=== PATIENT | female | born 1960 | race Caucasian/White ===

== ENCOUNTER 2016-09-08 19:55 | Emergency (ER) | payer OTHER ==
--- NOTE | ~2016-09-08 | EKG ---
PATIENT: LENIN LAINEZ UNIT #: [id number] Ventricular Rate: 78 BPM Atrial Rate: 78 BPM P-R Interval: 162 ms QRS Duration: 88 ms Q-T Interval: 392 ms QTC Calculation(Bezet): 446 ms P [place]: 54 degrees Calculated R [place]: 18 degrees Calculated T [place]: 63 degrees Diagnosis Line: Normal sinus rhythm Diagnosis Line: Anteroseptal infarct , age undetermined Diagnosis Line: Abnormal ECG Diagnosis Line: When compared with ECG of 24-FEB-2009 06:18, Diagnosis Line: Anteroseptal infarct is now Present Diagnosis Line: T wave inversion more evident in Anterior leads Diagnosis Line: Confirmed by ANN CONDE MD ([id number]) on Diagnosis Line: 09/09/2016 11:17:16 PM INTERPRETING MD: AMAYA HOGAN
[~2016-09-08 19:55] MED LIST: ACCUPRIL PO; ALTACE; ASPIRIN PO; ASPIRINEC PO; HCTZ PO; IBUPROFEN800 MG PO; IMDUR PO; IMITREX; KLONOPIN PO; LIPITOR; LOPRESSOR PO; MIDRIN CAPSULE1 CAP; NITROGYLCERIN SUBLINGUAL; TRAZODONE PO; ULTRAM PO; WELLBUTRIN PO; WELLBUTRIN SR PO; ZOCOR PO; ZOLOFT PO
[2016-09-08 21:36] LABS: POC - CKMB 2.6 ng/mL (0.0-7.9); POC - TROPONIN <0.05 ng/mL (<=0.05)
[2016-09-08 21:39] LABS: BASOPHIL# 0.1 X10e3 (0-0.3); BASOPHIL% 0.9 % (0-2.5); EOSINOPHIL# 0.9 X10e3 (0-0.7); EOSINOPHIL% 7.3 % (0.0-7.0); HEMATOCRIT 40.9 % (35.0-45.0); HEMOGLOBIN 13.1 gm/dL (12.0-16.0); LYMPHOCYTE# 3.8 X10e3 (1.0-3.5); MEAN CELL VOLUME 91.7 FL (83-96); MEAN CORPUSCULAR HEMOGLOBIN 29.5 PG (28-34); MEAN CORPUSCULAR HGB CONC 32.1 g/dL (30-36); MEAN PLATELET VOLUME 8.1 FL (6.5-11.5); NEUTROPHIL# 6.8 X10e3 (1.5-7.1); NEUTROPHIL% 53.8 % (40-75); PLATELET COUNT 300 X10e3 (140-420); RED BLOOD COUNT 4.46 X10e (3.90-5.30); RED CELL DISTRIBUTION WIDTH 14.6 % (11.0-15.5); WHITE BLOOD COUNT 12.7 X10e3 (4.0-10.5)
[2016-09-08 21:41] LABS: DIFF IND NO
[2016-09-08 21:59] LABS: BUN/CREATININE RATIO 10.9; CALCIUM SERUM 9.5 mg/dL (8.4-10.2); CREATININE SERUM 1.1 mg/dL (0.6-1.4); GLOM FILT RATE Estimated 55.7 mL/min (>60); POTASSIUM 3.9 mmol/L (3.5-5.1)
[2016-09-08 22:08] LABS: URINE SOURCE CLEAN CATCH
[2016-09-08 22:11] LABS: URINE APPEARANCE CLEAR; URINE BILIRUBIN NEG (NEG); URINE BLOOD NEG (NEG); URINE COLOR YELLOW; URINE GLUCOSE NEG (NEG); URINE KETONE NEG (NEG); URINE LEUKOCYTE ESTERASE NEG (NEG); URINE NITRATE NEG (NEG); URINE PH 6.5 (5-8); URINE PROTEIN NEG (NEG); URINE SPECIFIC GRAVITY 1.016 (1.003-1.035)
[2016-09-08 22:23] LABS: AMPHETAMINE POS (NEG); BARBITURATES NEG (NEG); BENZODIAZEPINES POS (NEG); COCAINE NEG (NEG); MARIJUANA NEG (NEG); OPIATES NEG (NEG); TRICYCLIC ANTIDEPRESSANTS POS (NEG); U METHADONE NEG (NEG)
[2016-09-08 22:26] LABS: CULTURE INDICATED? NO
== END 2016-09-08 23:26 | disposition home or self-care (01) ==
LOC: CED 19:55
PROVIDERS: Emergency Medicine
DX: F15.10 Other stimulant abuse, uncomplicated (principal); F41.9 Anxiety disorder, unspecified; I25.10 Atherosclerotic heart disease of native coronary artery without angina pectoris; E78.5 Hyperlipidemia, unspecified; Z86.73 Personal history of transient ischemic attack (TIA), and cerebral infarction without residual deficits; F32.9 Major depressive disorder, single episode, unspecified; I10 Essential (primary) hypertension; G43.909 Migraine, unspecified, not intractable, without status migrainosus
CPT/HCPCS: 36415; 80048; 80307; 81003; 82553; 84484; 85025; 93005; 96374; 96375; 99284; J0696; J2060